=== PATIENT | male | born 1990 | race Caucasian/White ===

== ENCOUNTER 2018-04-16 18:44 | Inpatient (IN) ==
[2018-04-16 19:10] LABS: Bilirubin,Urine Negative (Negative); Blood,Urine Negative (Negative); Clarity,Urine Clear (Clear); Color,Urine Yellow (Yellow); Glucose,Urine (UA) Normal (Normal); Ketones,Urine Negative (Negative); Leukocyte Esterase,Urine Negative (Negative); Nitrite,Urine Negative (Negative); PH,Urine 6.5 pH Units (5.0-8.0); Protein,Urine Negative (Neg-Trace); Specific Gravity,Urine 1.008 (1.010-1.025); Urobilinogen,Urine Normal (Normal)
--- NOTE | 2018-04-16 19:11 | Emergency Department Note ---
Disposition Clinical Impression: Suicidal ideation Disposition: Still a Patient Condition: Good Referrals: April Aguilar [employer] [Advanced Practice Nurse] - Forms: ED Satisfaction Letter Time of Disposition: 23:15 Psych HPI - General Chief Complaint: ED Psychiatric Symptoms Stated Complaint: psych eval, SI/HI Source: patient Mode of arrival: ambulatory Limitations: no limitations Nursing Notes Reviewed: Yes Vital Signs Reviewed: Yes - History of Present Illness HPI Narrative: Patient presents to the emergency department today for evaluation of psychiatric disturbances. Patient states that he has a history of bipolar as well as anxiety and depression. He has gone through rehabilitation and required inpatient stay in the past. He states that he was started on Suboxone but this started to become more of a habit so he tried weaning himself off. While weaning himself off he did start to take other drugs which include crushed up Vicodin which she has injected. He does have sites of injection that do not appear to be infected at this time. He does have a previous history of hepatitis C. His depression has gotten to the point that he feels like he is going to . He feels that he would be better off sometimes. He has been experiencing visual as well as auditory hallucinations. Describes feeling as if he is somebody else. Describes people talking to him. Patient states he does have access to firearms. Patient is not currently having his many symptoms as he was yesterday. States that he wants to become an active member of society but does not feel he can do without significant help. - Related Data Previous Rx's Medication Instructions Recorded Sulfamethoxazole/Trimeth DS 1 each PO BID #14 tablet 01/30/18 [Bactrim DS] cephALEXin [Keflex] 500 mg PO QID #28 capsule 01/30/18 Allergies Allergy/AdvReac Type Severity Reaction Status Date / Time Sulfa (Sulfonamide Allergy Hives Verified 02/04/18 11:47 Antibiotics) Review of Systems: As Per HPI Constitutional: Denies: fever, chills Cardiovascular: Reports: chest pain (2 days ago described as sharp in not worse with exertion) Respiratory: Denies: cough, dyspnea Gastrointestinal: Denies: abdominal pain, nausea Musculoskeletal: Denies: back pain, neck pain Integumentary: Denies: rash, abrasion Neurological: Denies: headache Psychiatric: Reports: depression, suicidal thoughts, auditory hallucinations, visual hallucinations Endocrine: Denies: fatigue Past Medical History - Past Medical History Medical history: Reports: kidney stones, other Psychiatric history: Reports: anxiety, depression - Social History Smoking Status: Current every day smoker Smokeless Tobacco Status: No Alcohol use: Reports: occasionally Drug use: Reports: marijuana, methamphetamine, IV Drug Use, other Physical Exam General: Well appearing, nontoxic, mildly anxious Head: Normocephalic Atraumatic Eyes: PERRL, EOMI ENT: Airway patent, no stridor Neck: supple, full range of motion Chest: Lungs clear to auscultation bilateral Cardiac: Regular rate and rhythm, no murmurs, rubs or gallops Abdomen: soft, nontender, nondistended; no guarding, rebound, or tenderness to percussion Skin: Previous injection sites the right antecubital fossa without signs of infection and no decreased range of motion Neuro: Alert and Oriented to person, place, and time; No focal deficit, Psych: Mildly anxious without evidence of psychosis. - General Limitations: no limitations General appearance: alert Course Course Narrative: Patient medically cleared. Awaiting laboratory clearance. Patient will be discussed with the psychiatry team. Further disposition pending. - Reevaluation(s) Reevaluation #1: Patient awaiting further psychiatric disposition. Signed out to Dr. Lujan. Vital Signs Temperature 98.2 F 04/16/18 18:46 Pulse Rate 107 04/16/18 18:46 Respiratory Rate 14 04/16/18 18:46 Blood Pressure 112/77 04/16/18 18:46 O2 Sat by Pulse Oximetry 97 04/16/18 18:46 Temperature 98.2 F 04/16/18 18:46 Pulse Rate 107 04/16/18 18:46 Respiratory Rate 14 04/16/18 18:46 Blood Pressure 112/77 04/16/18 18:46 O2 Sat by Pulse Oximetry 97 04/16/18 18:46 Oxygen Delivery Oxygen Delivery Room Air Psych - Lab Data Result diagrams: 04/16/18 19:13 04/16/18 19:13 Lab Results 04/16/18 04/16/18 04/16/18 Range/Units 19:00 19:00 19:13 WBC 8.0 (4.3-11.1) K/mcL RBC 4.42 (4.19-5.50) M/mcL Hgb 13.7 (12.9-16.9) g/dL Hct 39.6 (37.5-50.1) % MCV 89.6 (83.0-100.0) fL MCH 31.0 (28.0-33.3) pg MCHC 34.6 (31.6-35.5) g/dL RDW 13.2 (11.5-14.5) % Plt Count 247 (140-400) K/mcL MPV 10.2 (9.4-12.4) fL Immature Gran % 0.5 (0-4) % Seg Neutrophils % 55.4 % Lymphocytes % 30.8 % Monocytes % 11.4 % Eosinophils % 1.4 % Basophils % 0.5 % Neutrophils # 4.4 (1.6-8.9) K/mcL Lymphocytes # 2.5 (0.6-4.6) K/mcL Monocytes # 0.9 (0.0-1.3) K/mcL Eosinophils # 0.1 (0.0-0.6) K/mcL Basophils # 0.0 (0.0-0.2) K/mcL Sodium (136-145) mEq/L Potassium (3.5-5.1) mEq/L Chloride (98-107) mEq/L Carbon Dioxide (23-29) mEq/L BUN (6-20) mg/dL Creatinine (0.70-1.30) mg/dL Est GFR ( Amer) (> 60) Est GFR (Non-Af Amer) (> 60) BUN/Creatinine Ratio (6-26) Glucose (70-105) mg/dL Calculated Osmolality (280-300) Calcium (8.6-10.3) mg/dL Total Bilirubin (0.3-1.0) mg/dL Direct Bilirubin (0.0-0.2) mg/dL Indirect Bilirubin (0.0-1.2) mg/dL AST (13-39) Units/L ALT (7-52) Units/L Alkaline Phosphatase (34-104) Units/L Serum Total Protein (6.4-8.9) g/dL Albumin (3.5-5.7) g/dL Globulin (2.4-3.5) g/dL Albumin/Globulin Ratio (1.1-2.2) Urine Color Yellow (Yellow) Urine Clarity Clear (Clear) Urine pH 6.5 (5.0-8.0) pH Units Ur Specific [place] 1.008 L (1.010-1.025) Urine Protein Negative (Neg-Trace) mg/dL Urine Glucose (UA) Normal (Normal) mg/dL Urine Ketones Negative (Negative) mg/dL Urine Blood Negative (Negative) Urine Nitrite Negative (Negative) Urine Bilirubin Negative (Negative) Urine Urobilinogen Normal (Normal) mg/dL Ur Leukocyte Esterase Negative (Negative) Salicylates (15.0-30.0) mg/dL Urine Opiates Screen Positive H (Fsaxli=184) ng/mL Acetaminophen (10-20) mcg/mL Ur Barbiturates Screen Negative (Jcditd=798) ng/mL Ur Phencyclidine Scrn Negative (Cutoff=25) ng/mL Ur Amphetamines Screen Negative (Aaqeiv=8571) ng/mL U Benzodiazepines Scrn Negative (Fufqbb=738) ng/mL Urine Cocaine Screen Negative (Cutoff= 300) ng/mL U Marijuana (THC) Screen Positive H (Cutoff = 50) ng/mL Ur Drug Screen Interp See Below Ethyl Alcohol (Less than 10) mg/dL 04/16/18 Range/Units 19:13 WBC (4.3-11.1) K/mcL RBC (4.19-5.50) M/mcL Hgb (12.9-16.9) g/dL Hct (37.5-50.1) % MCV (83.0-100.0) fL MCH (28.0-33.3) pg MCHC (31.6-35.5) g/dL RDW (11.5-14.5) % Plt Count (140-400) K/mcL MPV (9.4-12.4) fL Immature Gran % (0-4) % Seg Neutrophils % % Lymphocytes % % Monocytes % % Eosinophils % % Basophils % % Neutrophils # (1.6-8.9) K/mcL Lymphocytes # (0.6-4.6) K/mcL Monocytes # (0.0-1.3) K/mcL Eosinophils # (0.0-0.6) K/mcL Basophils # (0.0-0.2) K/mcL Sodium 137 (136-145) mEq/L Potassium 3.4 L (3.5-5.1) mEq/L Chloride 103 (98-107) mEq/L Carbon Dioxide 25 (23-29) mEq/L BUN 11 (6-20) mg/dL Creatinine 0.75 (0.70-1.30) mg/dL Est GFR ( Amer) > 60 (> 60) Est GFR (Non-Af Amer) > 60 (> 60) BUN/Creatinine Ratio 15 (6-26) Glucose 123 H (70-105) mg/dL Calculated Osmolality 285 (280-300) Calcium 9.2 (8.6-10.3) mg/dL Total Bilirubin 1.0 (0.3-1.0) mg/dL Direct Bilirubin 0.2 (0.0-0.2) mg/dL Indirect Bilirubin 0.8 (0.0-1.2) mg/dL AST 72 H (13-39) Units/L ALT 139 H (7-52) Units/L Alkaline Phosphatase 59 (34-104) Units/L Serum Total Protein 6.9 (6.4-8.9) g/dL Albumin 4.3 (3.5-5.7) g/dL Globulin 2.6 (2.4-3.5) g/dL Albumin/Globulin Ratio 1.7 (1.1-2.2) Urine Color (Yellow) Urine Clarity (Clear) Urine pH (5.0-8.0) pH Units Ur Specific [place] (1.010-1.025) Urine Protein (Neg-Trace) mg/dL Urine Glucose (UA) (Normal) mg/dL Urine Ketones (Negative) mg/dL Urine Blood (Negative) Urine Nitrite (Negative) Urine Bilirubin (Negative) Urine Urobilinogen (Normal) mg/dL Ur Leukocyte Esterase (Negative) Salicylates < 2.5 L (15.0-30.0) mg/dL Urine Opiates Screen (Vyvgwb=816) ng/mL Acetaminophen < 10 L (10-20) mcg/mL Ur Barbiturates Screen (Ukydpl=290) ng/mL Ur Phencyclidine Scrn (Cutoff=25) ng/mL Ur Amphetamines Screen (Vlyazy=8856) ng/mL U Benzodiazepines Scrn (Phxnyc=485) ng/mL Urine Cocaine Screen (Cutoff= 300) ng/mL U Marijuana (THC) Screen (Cutoff = 50) ng/mL Ur Drug Screen Interp Ethyl Alcohol < 10 (Less than 10) mg/dL - EKG Data EKG attestation: Yes I reviewed and interpreted this EKG. EKG results narrative: EKG shows sinus rhythm with ventricular rate of 91. WI interval 150. QRS 105. QTC 399. Patient has no significant ST elevations or depressions. No previous EKG for comparison. Psychiatric Medical Clearance - Medical Clearance Checklist Medical History: No Social History Section defined Current Vitals: Last Vital Signs Temp 98.2 F 04/16/18 18:46 Pulse 107 04/16/18 18:46 Resp 14 04/16/18 18:46 BP 112/77 04/16/18 18:46 Pulse Ox 97 04/16/18 18:46 Psychiatric Lab Panel: Drug Levels and Toxicity 04/16/18 04/16/18 19:00 19:13 Urine Opiates Screen Positive H Acetaminophen < 10 L Ur Barbiturates Screen Negative Ur Phencyclidine Scrn Negative Ur Amphetamines Screen Negative U Benzodiazepines Scrn Negative Urine Cocaine Screen Negative U Marijuana (THC) Screen Positive H Ethyl Alcohol < 10 Abnormal Labs: Abnormal lab results Potassium 3.4 mEq/L (3.5-5.1) L 04/16/18 19:13 Glucose 123 mg/dL (70-105) H 04/16/18 19:13 AST 72 Units/L (13-39) H 04/16/18 19:13 ALT 139 Units/L (7-52) H 04/16/18 19:13 Ur Specific [place] 1.008 (1.010-1.025) L 04/16/18 19:00 Salicylates < 2.5 mg/dL (15.0-30.0) L 04/16/18 19:13 Urine Opiates Screen Positive ng/mL (Imdvew=130) H 04/16/18 19:00 Acetaminophen < 10 mcg/mL (10-20) L 04/16/18 19:13 U Marijuana (THC) Screen Positive ng/mL (Cutoff = 50) H 04/16/18 19:00 Statement of Medical Clearance: I have evaluated the patient, reviewed diagnostic information, and certify that the patient's medical condition is sufficiently stable that transfer to the psychiatric unit does not pose a significant risk of deterioration.
[2018-04-16 19:29] LABS: Basophils % 0.5 %; Eosinophils # 0.1 K/mcL (0.0-0.6); Eosinophils % 1.4 %; Hematocrit 39.6 % (37.5-50.1); Hemoglobin 13.7 g/dL (12.9-16.9); Immature Granulocytes % 0.5 % (0-4); Lymphocytes # 2.5 K/mcL (0.6-4.6); Lymphocytes % 30.8 %; Mean Corpuscular HGB Conc 34.6 g/dL (31.6-35.5); Mean Corpuscular Volume 89.6 fL (83.0-100.0); Mean Platelet Volume 10.2 fL (9.4-12.4); Monocytes # 0.9 K/mcL (0.0-1.3); Monocytes % 11.4 %; Neutrophils # 4.4 K/mcL (1.6-8.9); Platelet Count 247 K/mcL (140-400); Red Blood Count 4.42 M/mcL (4.19-5.50); Red Cell Distribution Width 13.2 % (11.5-14.5); Segmented Neutrophils % 55.4 %
[2018-04-16 19:36] LABS: Amphetamine Screen,Urine Negative ng/mL (Cutoff=1000); Barbiturate Screen,Urine Negative ng/mL (Cutoff=200); Benzodiazepines Screen,Urine Negative ng/mL (Cutoff=200); Cannabinoid Screen,Urine Positive ng/mL (Cutoff = 50); Cocaine Screen,Urine Negative ng/mL (Cutoff= 300); Opiate Screen,Urine Positive ng/mL (Cutoff=300); Phencyclidine Screen,Urine Negative ng/mL (Cutoff=25)
[2018-04-16 19:47] LABS: Acetaminophen < 10 mcg/mL (10-20); Alanine Aminotransferase 139 Units/L (7-52); Albumin 4.3 g/dL (3.5-5.7); Albumin/Globulin Ratio 1.7 (1.1-2.2); Alkaline Phosphatase 59 Units/L (34-104); Aspartate Amino Transferase 72 Units/L (13-39); BUN/Creatinine Ratio 15 (6-26); Bilirubin,Direct 0.2 mg/dL (0.0-0.2); Bilirubin,Indirect 0.8 mg/dL (0.0-1.2); Blood Urea Nitrogen 11 mg/dL (6-20); Calcium 9.2 mg/dL (8.6-10.3); Carbon Dioxide 25 mEq/L (23-29); Chloride 103 mEq/L (98-107); Ethanol < 10 mg/dL (Less than 10); Globulin 2.6 g/dL (2.4-3.5); Glucose 123 mg/dL (70-105); Osmolality,Calculated 285 (280-300); Potassium 3.4 mEq/L (3.5-5.1); Salicylate < 2.5 mg/dL (15.0-30.0); Sodium 137 mEq/L (136-145); Total Protein 6.9 g/dL (6.4-8.9); eGFR For Non-African Americans > 60 (> 60)
--- NOTE | 2018-04-17 00:23 | Emergency Department Note ---
Disposition Clinical Impression: Suicidal ideation Disposition: Admitted As Inpatient Condition: Good Time of Disposition: 00:22 General Adult HPI - General Chief complaint: ED Psychiatric Symptoms Stated complaint: psych eval, SI/HI Source: patient Mode of arrival: ambulatory Limitations: no limitations - History of Present Illness Pain Scale: 0 - Related Data Previous Rx's Medication Instructions Recorded Sulfamethoxazole/Trimeth DS 1 each PO BID #14 tablet 01/30/18 [Bactrim DS] cephALEXin [Keflex] 500 mg PO QID #28 capsule 01/30/18 Allergies Allergy/AdvReac Type Severity Reaction Status Date / Time Sulfa (Sulfonamide Allergy Hives Verified 02/04/18 11:47 Antibiotics) Constitutional: Denies: fever, chills Cardiovascular: Reports: chest pain (2 days ago described as sharp in not worse with exertion) Respiratory: Denies: cough, dyspnea Gastrointestinal: Denies: abdominal pain, nausea Musculoskeletal: Denies: back pain, neck pain Integumentary: Denies: rash, abrasion Neurological: Denies: headache Psychiatric: Reports: depression, suicidal thoughts, auditory hallucinations, visual hallucinations Endocrine: Denies: fatigue Past Medical History - Past Medical History Medical history: Reports: kidney stones, other Psychiatric history: Reports: anxiety, depression - Social History Smoking Status: Current every day smoker Smokeless Tobacco Status: No Alcohol use: Reports: occasionally Drug use: Reports: marijuana, methamphetamine, IV Drug Use, other Physical Exam - General Limitations: no limitations General appearance: alert Course Course Narrative: This patient was signed out to me at shift change from Dr. Bishop. Please refer to his note for complete details of the history and physical examination. Patient is a 28-year-old male who presented with suicidal ideation and has been evaluated and cleared for psychiatric consultation. Age patient is awaiting final disposition pending psychiatric consultation. Patient was seen and evaluated in the emergency department by the [address] psychiatry service and is being admitted to the [address] psychiatric unit. Vital Signs Temperature 98.2 F 04/16/18 18:46 Pulse Rate 107 04/16/18 18:46 Respiratory Rate 14 04/16/18 18:46 Blood Pressure 112/77 04/16/18 18:46 O2 Sat by Pulse Oximetry 97 04/16/18 18:46 Temperature 98.2 F 04/16/18 18:46 Pulse Rate 90 04/16/18 23:25 Respiratory Rate 16 04/16/18 23:25 Blood Pressure 118/78 04/16/18 23:25 O2 Sat by Pulse Oximetry 98 04/16/18 23:25 Oxygen Delivery Oxygen Delivery Room Air Medical Decision Making - Lab Data Result diagrams: 04/16/18 19:13 04/16/18 19:13 Lab Results 04/16/18 04/16/18 04/16/18 Range/Units 19:00 19:00 19:13 WBC 8.0 (4.3-11.1) K/mcL RBC 4.42 (4.19-5.50) M/mcL Hgb 13.7 (12.9-16.9) g/dL Hct 39.6 (37.5-50.1) % MCV 89.6 (83.0-100.0) fL MCH 31.0 (28.0-33.3) pg MCHC 34.6 (31.6-35.5) g/dL RDW 13.2 (11.5-14.5) % Plt Count 247 (140-400) K/mcL MPV 10.2 (9.4-12.4) fL Immature Gran % 0.5 (0-4) % Seg Neutrophils % 55.4 % Lymphocytes % 30.8 % Monocytes % 11.4 % Eosinophils % 1.4 % Basophils % 0.5 % Neutrophils # 4.4 (1.6-8.9) K/mcL Lymphocytes # 2.5 (0.6-4.6) K/mcL Monocytes # 0.9 (0.0-1.3) K/mcL Eosinophils # 0.1 (0.0-0.6) K/mcL Basophils # 0.0 (0.0-0.2) K/mcL Sodium (136-145) mEq/L Potassium (3.5-5.1) mEq/L Chloride (98-107) mEq/L Carbon Dioxide (23-29) mEq/L BUN (6-20) mg/dL Creatinine (0.70-1.30) mg/dL Est GFR ( Amer) (> 60) Est GFR (Non-Af Amer) (> 60) BUN/Creatinine Ratio (6-26) Glucose (70-105) mg/dL Calculated Osmolality (280-300) Calcium (8.6-10.3) mg/dL Total Bilirubin (0.3-1.0) mg/dL Direct Bilirubin (0.0-0.2) mg/dL Indirect Bilirubin (0.0-1.2) mg/dL AST (13-39) Units/L ALT (7-52) Units/L Alkaline Phosphatase (34-104) Units/L Serum Total Protein (6.4-8.9) g/dL Albumin (3.5-5.7) g/dL Globulin (2.4-3.5) g/dL Albumin/Globulin Ratio (1.1-2.2) Urine Color Yellow (Yellow) Urine Clarity Clear (Clear) Urine pH 6.5 (5.0-8.0) pH Units Ur Specific [place] 1.008 L (1.010-1.025) Urine Protein Negative (Neg-Trace) mg/dL Urine Glucose (UA) Normal (Normal) mg/dL Urine Ketones Negative (Negative) mg/dL Urine Blood Negative (Negative) Urine Nitrite Negative (Negative) Urine Bilirubin Negative (Negative) Urine Urobilinogen Normal (Normal) mg/dL Ur Leukocyte Esterase Negative (Negative) Salicylates (15.0-30.0) mg/dL Urine Opiates Screen Positive H (Cxievl=757) ng/mL Acetaminophen (10-20) mcg/mL Ur Barbiturates Screen Negative (Inbnph=821) ng/mL Ur Phencyclidine Scrn Negative (Cutoff=25) ng/mL Ur Amphetamines Screen Negative (Avgcss=1612) ng/mL U Benzodiazepines Scrn Negative (Olthth=478) ng/mL Urine Cocaine Screen Negative (Cutoff= 300) ng/mL U Marijuana (THC) Screen Positive H (Cutoff = 50) ng/mL Ur Drug Screen Interp See Below Ethyl Alcohol (Less than 10) mg/dL 04/16/18 Range/Units 19:13 WBC (4.3-11.1) K/mcL RBC (4.19-5.50) M/mcL Hgb (12.9-16.9) g/dL Hct (37.5-50.1) % MCV (83.0-100.0) fL MCH (28.0-33.3) pg MCHC (31.6-35.5) g/dL RDW (11.5-14.5) % Plt Count (140-400) K/mcL MPV (9.4-12.4) fL Immature Gran % (0-4) % Seg Neutrophils % % Lymphocytes % % Monocytes % % Eosinophils % % Basophils % % Neutrophils # (1.6-8.9) K/mcL Lymphocytes # (0.6-4.6) K/mcL Monocytes # (0.0-1.3) K/mcL Eosinophils # (0.0-0.6) K/mcL Basophils # (0.0-0.2) K/mcL Sodium 137 (136-145) mEq/L Potassium 3.4 L (3.5-5.1) mEq/L Chloride 103 (98-107) mEq/L Carbon Dioxide 25 (23-29) mEq/L BUN 11 (6-20) mg/dL Creatinine 0.75 (0.70-1.30) mg/dL Est GFR ( Amer) > 60 (> 60) Est GFR (Non-Af Amer) > 60 (> 60) BUN/Creatinine Ratio 15 (6-26) Glucose 123 H (70-105) mg/dL Calculated Osmolality 285 (280-300) Calcium 9.2 (8.6-10.3) mg/dL Total Bilirubin 1.0 (0.3-1.0) mg/dL Direct Bilirubin 0.2 (0.0-0.2) mg/dL Indirect Bilirubin 0.8 (0.0-1.2) mg/dL AST 72 H (13-39) Units/L ALT 139 H (7-52) Units/L Alkaline Phosphatase 59 (34-104) Units/L Serum Total Protein 6.9 (6.4-8.9) g/dL Albumin 4.3 (3.5-5.7) g/dL Globulin 2.6 (2.4-3.5) g/dL Albumin/Globulin Ratio 1.7 (1.1-2.2) Urine Color (Yellow) Urine Clarity (Clear) Urine pH (5.0-8.0) pH Units Ur Specific [place] (1.010-1.025) Urine Protein (Neg-Trace) mg/dL Urine Glucose (UA) (Normal) mg/dL Urine Ketones (Negative) mg/dL Urine Blood (Negative) Urine Nitrite (Negative) Urine Bilirubin (Negative) Urine Urobilinogen (Normal) mg/dL Ur Leukocyte Esterase (Negative) Salicylates < 2.5 L (15.0-30.0) mg/dL Urine Opiates Screen (Djxayb=717) ng/mL Acetaminophen < 10 L (10-20) mcg/mL Ur Barbiturates Screen (Iumtsw=356) ng/mL Ur Phencyclidine Scrn (Cutoff=25) ng/mL Ur Amphetamines Screen (Uunjxe=2910) ng/mL U Benzodiazepines Scrn (Odukrg=981) ng/mL Urine Cocaine Screen (Cutoff= 300) ng/mL U Marijuana (THC) Screen (Cutoff = 50) ng/mL Ur Drug Screen Interp Ethyl Alcohol < 10 (Less than 10) mg/dL
[2018-04-17] MEDS ORDERED: MOM Conc 10 ML UD.LIQ PO PRN (00:25)
[2018-04-17] MEDS ORDERED: *HR* LORazepam 2 MG/ML VIAL IM PRN (00:25)
[2018-04-17] MEDS ORDERED: Ibuprofen 400 MG TABLET PO PRN (00:25)
[2018-04-17] MEDS ORDERED: Acetaminophen 325 MG TABLET PO PRN (00:25)
[2018-04-17] MEDS ORDERED: *HR* LORazepam 1 MG TABLET PO PRN (00:25)
[2018-04-17] MEDS ORDERED: Haloperidol Lactate 5 MG/ML VIAL IM PRN (00:25)
[2018-04-17] MEDS ORDERED: Ondansetron ODT 4 MG TAB.RAPDIS SL PRN (00:32)
[2018-04-17] MEDS: hydrOXYzine pamoate 25 MG CAPSULE PO PRN (01:43)
[2018-04-17] MEDS: traZODone 50 MG TABLET PO PRN (01:43)
[2018-04-17] MEDS: cloNIDine HCl 0.1 MG TABLET PO SCH ×4 (02:19→20:54)
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
[2018-04-17] MEDS ORDERED: Nicotine 21 MG PATCH.TD24 TD ONE (14:14)
[2018-04-17] MEDS: Baclofen 10 MG TABLET PO SCH ×2 (14:51→20:54)
--- NOTE | 2018-04-17 20:25 | Electrocardiograph Report ---
[address] [address] Test Date: 2018-04-16 Pat Name: Fransico Koenig Department: 103 Room: 1A45 Gender: M Social Insurance Adviser: MATTHEW : 1990 Requested By: [id number] Order Number: [id number] Reading MD: Giovana Bailon Measurements Intervals [place] Rate: 91 P: 60 TN: 150 QRS: 97 QRSD: 105 T: 44 QT: 350 QTc: 399 Interpretive Statements SINUS RHYTHM BORDERLINE RIGHT AXIS DEVIATION [QRS AXIS > 90] INCOMPLETE RIGHT BUNDLE BRANCH BLOCK [90+ ms QRS DURATION, TERMINAL R IN V1/V2, 40+ ms S IN I/aVL/V4/V5/V6] Electronically Signed On 04-17-2018 17:06:15 EDT by Giovana Bailon
[2018-04-18] MEDS: Baclofen 10 MG TABLET PO SCH ×3 (08:59→21:11)
[2018-04-18] MEDS: cloNIDine HCl 0.1 MG TABLET PO SCH ×3 (08:59→21:11)
[2018-04-18] MEDS: Nicotine 21 MG PATCH.TD24 TD SCH (09:00)
[2018-04-18] MEDS: Mag Hydrox/Al Hydrox/Simeth 30 ML UDC PO PRN (10:54)
--- NOTE | 2018-04-18 15:11 | Psychiatry Progress Note ---
Date of Encounter: 04/18/18 Time of Encounter: 15:00 Subjective Interval history: 28 yo white male CC: It as if I cannot tell. HPI: Patient has been able to sleep. he has heard some voices. he has some isolatin last night but today is more social and out of his room. he attended groups yesterday. he is insterested in doing this. he has ome withdrawal symptoms but these are improved. he has some GI discomfor.t He has said that absitence is problem He says His body does not want marijuana, but his body is craving it. he is willing to consider some respite or other treatment. 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 Current visit: Yes Status: Acute Plan: Close observation, Secure weapons, Family/Supportive other meeting Risks , benefits, side effects, alternatives discussed w/pt: Yes Patient agreeable to treatment: Yes (3) Opioid dependence with withdrawal Current visit: Yes Status: Acute Plan: Monitor appetite, Family/Supportive other meeting Risks, benefits, side effects, alternatives discussed w/pt: No Patient agreeable to treatment: No (4) Recurrent brief depressive episodes Current visit: Yes Status: Acute Plan: Group Therapy, Monitor sleep, Monitor appetite, Secure weapons, Family/ Supportive other meeting Risks, benefits, side effects, alternatives discussed w/pt: Yes Patient agreeable to treatment: Yes Consult Discharge Plan - Plan Referrals: NONE,PCP [Primary Care Provider] - Psychiatry Exam - Constitutional Vitals: Temp Pulse Resp BP Pulse Ox 97.4 F L 59 16 107/69 98 04/18/18 09:00 04/18/18 09:00 04/18/18 09:00 04/18/18 09:00 04/16/18 23:25 General appearance: age & developmentally appropriate, well-groomed, well- nourished - Musculoskeletal Gait: normal Station: relaxed Strength & Tone: normal for patient - Psychiatric Patient Orientation: Yes Person, Yes Time, Yes Place Level of alertness: Alert Behavior: calm, withdrawn Psychomotor activity: Slowed Eye Contact: Minimal Contact Mood Description: Euthymic/stable Affect description: congruent with mood, constricted Speech Volume: Normal Speech pattern: normal rate, normal rhythm, normal tone, fluent, spontaneous Language & Vocabulary: consistent with education Thought Process: Linear, Goal Oriented Thought Content: Yes Suicidal ideation, No Homicidal ideation, No Overt delusions, Yes Ideas of reference, Yes Thought broadcasting, Yes Thought insertion Perceptual Disturbances: Yes Auditory hallucinations, No Visual hallucinations Attention Span Ability: Capable of Focused Attention Memory Description: Grossly Intact Patient Reliability: Questionable Historian Fund of knowledge: Yes abstraction ability, Yes aware of current events Intelligence Estimate: Average Judgment: Limited Insight: Minimal
[2018-04-19] MEDS: hydrOXYzine pamoate 25 MG CAPSULE PO PRN (00:21)
[2018-04-19] MEDS: Nicotine 21 MG PATCH.TD24 TD SCH (08:43)
[2018-04-19] MEDS: Baclofen 10 MG TABLET PO SCH ×3 (08:43→21:17)
[2018-04-19] MEDS: cloNIDine HCl 0.1 MG TABLET PO SCH ×2 (08:43→21:17)
--- NOTE | 2018-04-19 14:56 | Psychiatry Progress Note ---
Date of Encounter: 04/19/18 Time of Encounter: 15:00 Subjective Interval history: Patient is a 28-year-old white male. He is here as a voluntary patient. The patient was advised to search for treatment programs. However he was overheard on the phone talking to someone about his symptoms. The patient has some GI complaints. He is tolerating the medications for withdrawal. The patient is not a good candidate for naltrexone until 04/24/2018. I will increase Seroquel to 300 mg daily at bedtime I will reduce clonidine to 0.1 twice a day. 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 Current visit: Yes Status: Acute Plan: Continue hospitalization, Close observation, Monitor sleep, Monitor appetite Risks, benefits, side effects, alternatives discussed w/pt: Yes Patient agreeable to treatment: Yes (3) Opioid dependence with withdrawal Current visit: Yes Status: Acute Plan: Group Therapy, Monitor sleep, Family/Supportive other meeting Risks, benefits, side effects, alternatives discussed w/pt: No Patient agreeable to treatment: No (4) Recurrent brief depressive episodes Current visit: Yes Status: Acute Plan: Continue hospitalization, Secure weapons Risks, benefits, side effects, alternatives discussed w/pt: Yes Patient agreeable to treatment: Yes Consult Discharge Plan - Plan Referrals: NONE,PCP [Primary Care Provider] - Psychiatry Exam - Constitutional Vitals: Temp Pulse Resp BP Pulse Ox 97.9 F 69 16 106/70 98 04/19/18 09:00 04/19/18 09:00 04/19/18 09:00 04/19/18 09:00 04/16/18 23:25 General appearance: age & developmentally appropriate, well-groomed, well- nourished - Musculoskeletal Gait: normal Station: relaxed Strength & Tone: normal for patient - Psychiatric Patient Orientation: Yes Person, Yes Time, Yes Place Level of alertness: Alert Behavior: calm, cooperative Psychomotor activity: Normal Eye Contact: Maintains Eye Contact Mood Description: Euthymic/stable Affect description: congruent with mood, full range Speech Volume: Normal Speech pattern: normal rate, normal rhythm, normal tone, fluent, spontaneous Language & Vocabulary: consistent with education Thought Process: Linear, Goal Oriented Thought Content: Yes Suicidal ideation, No Homicidal ideation, No Overt delusions, Yes Ideas of reference, Yes Thought broadcasting, Yes Thought insertion Perceptual Disturbances: Yes Auditory hallucinations, No Visual hallucinations Attention Span Ability: Capable of Focused Attention Memory Description: Grossly Intact Patient Reliability: Reliable Historian Fund of knowledge: Yes abstraction ability, Yes aware of current events Intelligence Estimate: Average Judgment: Fair Insight: Partial
[2018-04-20] MEDS: Nicotine 21 MG PATCH.TD24 TD SCH (09:40)
[2018-04-20] MEDS: Baclofen 10 MG TABLET PO SCH ×3 (09:40→20:31)
[2018-04-20] MEDS: cloNIDine HCl 0.1 MG TABLET PO SCH ×2 (10:11→20:32)
--- NOTE | 2018-04-20 10:45 | Psychiatry Progress Note ---
Date of Encounter: 04/20/18 Time of Encounter: 10:36 Subjective Interval history: Client states he does not like the Seroquel. Blames medication for pain he is feeling around his shoulder blade. Although this is unlikely to be due to Seroquel there is no reason to continue medication if he is not willing to be compliant with it. No longer having any symptoms of psychosis. Client reports he has been diagnosed with Schizophrenia in the past but he does not look like someone with Schizophrenia to this teletypewriter installer and his history is more consistent with substance induced psychosis than it is a primary thought disorder. Client is asking for Depakote. Reports this medication is what helped him the most in the past. States no one is willing to prescribe it for him. After reviewing his history this teletypewriter installer suspects the main reason no one wants to use it is that client is Hep C positive. Liver enzymes mildly elevated this admission. Discussed this with client. He is aware of the risks of taking Depakote with an unhealthy liver. Aware he needs a liver to live. Willing to take Depakote despite the risks. Also aware future prescribers may not feel comfortable continuing medication if his liver enzymes start to worsen. This teletypewriter installer is willing to start Depakote at a low dose while titrating down on Seroquel provided client is agreeable to risks. He is trying to get into rehab and many places will not allow him to continue on Seroquel and participate in their residential treatment programs anyway. Discontinuing Seroquel will give him more treatment center options. Client states he is calling places but many of them will not return calls until Sunday or are requesting he call back on Sunday. Denies SI/HI today. Seems to be engaging well with others. Review of Systems Constitutional: Denies: fever, chills, weakness, weight change Eyes: Denies: eye pain, vision change Ears, Nose, Throat: Denies: ear pain, throat pain, dental pain, hearing loss, congestion Cardiovascular: Denies: chest pain, palpitations, dyspnea on exertion Respiratory: Denies: cough, dyspnea, wheezes Gastrointestinal: Denies: abdominal pain, nausea, vomiting, diarrhea, constipation Musculoskeletal: Denies: joint swelling, joint pain Neurological: Denies: headache, weakness, numbness, memory loss Psychiatric: Reports: depression, auditory hallucinations Results - Vital Signs Vital Signs: Temp Pulse Resp BP Pulse Ox 97.6 F 73 14 116/70 98 04/20/18 09:00 04/20/18 09:00 04/20/18 09:00 04/20/18 10:22 04/16/18 23:25 Assessment and Plan (1) 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 Current visit: Yes Status: Acute Plan: Continue hospitalization, Close observation, Suicide Precautions per unit protocol, Encourage participation in unit milieu, Group Therapy, Monitor sleep, Monitor appetite Risks, benefits, side effects, alternatives discussed w/pt: Yes Patient agreeable to treatment: Yes (2) Opioid dependence with withdrawal Current visit: Yes Status: Acute Plan: Continue hospitalization, Close observation, Suicide Precautions per unit protocol, Encourage participation in unit milieu, Group Therapy, Monitor sleep, Monitor appetite Risks, benefits, side effects, alternatives discussed w/pt: No Patient agreeable to treatment: No (3) Major depression Current visit: Yes Status: Acute Plan: Continue hospitalization, Close observation, Suicide Precautions per unit protocol, Encourage participation in unit milieu, Group Therapy, Monitor sleep, Monitor appetite Risks, benefits, side effects, alternatives discussed w/pt: Yes Patient agreeable to treatment: Yes Qualifiers: Major depression recurrence: recurrent Active/Remission status: currently active Major depression episode severity: moderate Qualified Code(s): F33.1 - Major depressive disorder, recurrent, moderate Consult Discharge Plan - Plan Referrals: NONE,PCP [Primary Care Provider] - Psychiatry Exam - Constitutional Vitals: Temp Pulse Resp BP Pulse Ox 97.6 F 73 14 116/70 98 04/20/18 09:00 04/20/18 09:00 04/20/18 09:00 04/20/18 10:22 04/16/18 23:25 General appearance: age & developmentally appropriate, well-groomed, well- nourished - Musculoskeletal Gait: normal Station: relaxed Strength & Tone: normal for patient - Psychiatric Patient Orientation: Yes Person, Yes Time, Yes Place Level of alertness: Alert Behavior: calm, cooperative Psychomotor activity: Normal Eye Contact: Minimal Contact Mood Description: Anxious Affect description: congruent with mood Speech Volume: Normal Speech pattern: normal rate, normal rhythm, normal tone, fluent, spontaneous Language & Vocabulary: consistent with education Thought Process: Linear, Goal Oriented Thought Content: No Suicidal ideation, No Homicidal ideation, No Overt delusions Perceptual Disturbances: No Auditory hallucinations, No Visual hallucinations Attention Span Ability: Capable of Focused Attention Memory Description: Grossly Intact Patient Reliability: Reliable Historian Fund of knowledge: Yes abstraction ability, Yes aware of current events Intelligence Estimate: Average Judgment: Limited Insight: Partial
[2018-04-20] MEDS: Valproic Acid Oral Soln 250 MG/5 ML UDC PO SCH (20:31)
[2018-04-21] MEDS: cloNIDine HCl 0.1 MG TABLET PO SCH ×2 (08:32→20:17)
[2018-04-21] MEDS: Baclofen 10 MG TABLET PO SCH ×3 (08:32→20:17)
[2018-04-21] MEDS: Valproic Acid Oral Soln 250 MG/5 ML UDC PO SCH ×2 (08:32→20:16)
[2018-04-21] MEDS: Nicotine 21 MG PATCH.TD24 TD SCH (08:32)
--- NOTE | 2018-04-21 10:17 | Psychiatry Progress Note ---
Date of Encounter: 04/21/18 Time of Encounter: 10:14 Subjective Interval history: Client states he is feeling better on the Depakote. Wants to continue to wean off of Seroquel. Worried his sleep might be effected but otherwise feels the med changes are only positive. He is worried about not finding a provider to prescribe Depakote once discharged. Discussed how this is a possibility given his liver issues and that at a minimum his LFTs will need followed over time. Continues to complain of AH but states they are much less and he can no longer make out what the voices are saying. Mood has improved. Denies SI/HI. Still interested in rehab but not doing much to secure a spot somewhere. Has called a couple of places and been told no one would be in until Sunday. Using this as an excuse not to call anywhere else. Review of Systems Constitutional: Denies: fever, chills, weakness, weight change Eyes: Denies: eye pain, vision change Ears, Nose, Throat: Denies: ear pain, throat pain, dental pain, hearing loss, congestion Cardiovascular: Denies: chest pain, palpitations, dyspnea on exertion Respiratory: Denies: cough, dyspnea, wheezes Gastrointestinal: Denies: abdominal pain, nausea, vomiting, diarrhea, constipation Musculoskeletal: Denies: joint swelling, joint pain Neurological: Denies: headache, weakness, numbness, memory loss Psychiatric: Reports: depression, auditory hallucinations Results - Vital Signs Vital Signs: Temp Pulse Resp BP Pulse Ox 97.9 F 77 16 113/91 98 04/20/18 20:46 04/20/18 20:46 04/20/18 20:46 04/20/18 20:46 04/16/18 23:25 Assessment and Plan (1) 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 Current visit: Yes Status: Acute Plan: Continue hospitalization, Close observation, Suicide Precautions per unit protocol, Encourage participation in unit milieu, Group Therapy, Monitor sleep Risks, benefits, side effects, alternatives discussed w/pt: Yes Patient agreeable to treatment: Yes (2) Opioid dependence with withdrawal Current visit: Yes Status: Acute Plan: Continue hospitalization, Close observation, Suicide Precautions per unit protocol, Encourage participation in unit milieu, Group Therapy, Monitor sleep Risks, benefits, side effects, alternatives discussed w/pt: No Patient agreeable to treatment: No (3) Major depression Current visit: Yes Status: Acute Plan: Continue hospitalization, Close observation, Suicide Precautions per unit protocol, Encourage participation in unit milieu, Group Therapy, Monitor sleep, Monitor appetite Risks, benefits, side effects, alternatives discussed w/pt: Yes Patient agreeable to treatment: Yes Qualifiers: Major depression recurrence: recurrent Active/Remission status: currently active Major depression episode severity: moderate Qualified Code(s): F33.1 - Major depressive disorder, recurrent, moderate Consult Discharge Plan - Plan Referrals: NONE,PCP [Primary Care Provider] - Psychiatry Exam - Constitutional Vitals: Temp Pulse Resp BP Pulse Ox 97.9 F 77 16 113/91 98 04/20/18 20:46 04/20/18 20:46 04/20/18 20:46 04/20/18 20:46 04/16/18 23:25 General appearance: age & developmentally appropriate, well-groomed, well- nourished - Musculoskeletal Gait: normal Station: relaxed Strength & Tone: normal for patient - Psychiatric Patient Orientation: Yes Person Level of alertness: Alert Behavior: calm, cooperative Psychomotor activity: Normal Eye Contact: Minimal Contact Mood Description: Euthymic/stable Affect description: blunted Speech Volume: Normal Speech pattern: normal rate, normal rhythm, normal tone, fluent, spontaneous Language & Vocabulary: consistent with education Thought Process: Linear, Goal Oriented Thought Content: No Suicidal ideation, No Homicidal ideation, No Overt delusions Perceptual Disturbances: Yes Auditory hallucinations Attention Span Ability: Capable of Focused Attention Memory Description: Grossly Intact Patient Reliability: Reliable Historian Fund of knowledge: Yes abstraction ability, Yes aware of current events Intelligence Estimate: Average Judgment: Limited Insight: Partial
[2018-04-22] MEDS: Nicotine 21 MG PATCH.TD24 TD SCH (08:56)
[2018-04-22] MEDS: Valproic Acid Oral Soln 250 MG/5 ML UDC PO SCH ×2 (08:56→20:12)
[2018-04-22] MEDS: Baclofen 10 MG TABLET PO SCH ×3 (08:56→20:13)
[2018-04-22] MEDS: cloNIDine HCl 0.1 MG TABLET PO SCH ×2 (08:56→20:13)
--- NOTE | 2018-04-22 13:20 | Psychiatry Progress Note ---
Date of Encounter: 04/22/18 Time of Encounter: 12:45 Subjective Interval history: Patient seen today , case d/w treatment plan and as per team patient still is having some psychosis. At [facility] states the best medication for him his depakote liquid form as it is not hard on his stomache. he refused to take seroquel last night as he remembered that it agitates the feeling of anxiety and pain in back so it was taperd from 300 mg to 100 mg and he refused last night states i feel better with out it and has been doing good. I d/w patient about his LFT and h/o hepatitis C , he is aware of risk of depakote on liver and he understands it and states has appointment with GI and as it is the only one helps so he will continue it. he is on 250 mg bid. he has significant drug use history and psychosis related to them , he is showing improvement with psychosis , he states he also talked to his pcp ABOUT WHAT MEDICATION HE IS ON AND SHE SAID SHE WILL PRESCRIBE HIM. HE IS STILL not calling inpatient rehab as now feels that AA meetings and out patient will be helpful as his s/s are better and he will continue his medication. will dc seroquel as patient c/o side effects and will continue all other medications. he is doing better and will start dc planning, and as per him my insurance does not cover some , others do not have bed and i know i can do this and this time i bought my self first time , i want to get better. 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 Current visit: Yes Status: Acute Plan: Continue hospitalization, Suicide Precautions per unit protocol, Encourage participation in unit milieu, Group Therapy, Monitor sleep, Family/ Supportive other meeting Risks, benefits, side effects, alternatives discussed w/pt: Yes Patient agreeable to treatment: Yes (2) Opioid dependence with withdrawal Current visit: Yes Status: Acute Plan: Continue hospitalization, Close observation, Suicide Precautions per unit protocol, Encourage participation in unit milieu, Group Therapy, Monitor sleep, Monitor appetite, Family/Supportive other meeting Risks, benefits, side effects, alternatives discussed w/pt: Yes Patient agreeable to treatment: Yes (3) Major depression Current visit: Yes Status: Acute Plan: Continue hospitalization, Suicide Precautions per unit protocol, Group Therapy, Family/Supportive other meeting Risks, benefits, side effects, alternatives discussed w/pt: Yes Patient agreeable to treatment: Yes Qualifiers: Major depression recurrence: recurrent Active/Remission status: currently active Major depression episode severity: moderate Qualified Code(s): F33.1 - Major depressive disorder, recurrent, moderate Consult Discharge Plan - Plan Referrals: NONE,PCP [Primary Care Provider] - Psychiatry Exam - Constitutional Vitals: Temp Pulse Resp BP Pulse Ox 97.2 F L 70 16 116/77 98 04/22/18 09:00 04/22/18 09:00 04/22/18 09:00 04/22/18 09:00 04/16/18 23:25 General appearance: age & developmentally appropriate - Musculoskeletal Gait: normal Station: other Strength & Tone: normal for patient - Psychiatric Patient Orientation: Yes Person, Yes Time, Yes Place Level of alertness: Alert Behavior: cooperative, anxious Psychomotor activity: Normal Eye Contact: Maintains Eye Contact Mood Description: Anxious Affect description: congruent with mood Speech Volume: Normal Speech pattern: clear, coherent Language & Vocabulary: consistent with education Thought Process: Logical Thought Content: Yes Intact Perceptual Disturbances: No Auditory hallucinations, No Visual hallucinations Attention Span Ability: Capable of Focused Attention Memory Description: Grossly Intact Patient Reliability: Reliable Historian Fund of knowledge: Yes average Intelligence Estimate: Average Judgment: Fair Insight: Partial
[2018-04-22] MEDS: Mag Hydrox/Al Hydrox/Simeth 30 ML UDC PO PRN (15:27)
[2018-04-22] MEDS: hydrOXYzine pamoate 25 MG CAPSULE PO PRN ×2 (15:27→20:13)
--- NOTE | 2018-04-22 19:59 | Internal Medicine Consult Note ---
Date of Encounter: 04/22/18 Time of Encounter: 18:00 - Assessment and plan (1) Chest pain, atypical Current Visit: Yes Status: Acute Assessment and plan: Patient reports of substernal chest pain but EKG shows no ST/T-wave changes and troponin negative No further intervention at this time; spec secondary to anxiety/stress Continue to monitor Hospitalist service will follow along with you (2) Mood disorder Current Visit: Yes Status: Acute Assessment and plan: Psychiatry following - Time Spent With Patient Total time spent is greater than 50% in coordination of care (as documented) at patient's floor/unit and/or counseling patient: Internal Medicine - CN: HPI - Data of Consult Requesting Physician: Dyana Hickman MD - Consult Narrative History of present illness: Patient is a 28-year-old male with past medical history significant for substance abuse and mood disorder who presents to the hospital who is currently inpatient psychiatric due to suicidal ideation. Hospitalist services called due to patient reporting of chest pain. Patient reports of substernal chest pain which he describes as squeezing with no provoking or relieving factors and denies any radiation of pain. Also patient also denies any associated symptoms. Stat troponin was ordered which was negative and EKG showed no evidence of T- wave or ST changes. Past Med Surg Social Fam HX - Past Medical History Medical history: kidney stones, other Additional medical history: mrsa, chlamydia Psychiatric history: other - Past Surgical History Surgical History: other - Social History Smoking Status: Current every day smoker Smokeless Tobacco Status: No Alcohol use: occasionally Drug use: marijuana, methamphetamine, IV Drug Use, other - Additional Family History Additional family history: Noncontributory Internal Medicine - CN: Meds No Known Home Drugs 04/17/18 [History] 3 Allergy/AdvReac Type Severity Reaction Status Date / Time Sulfa (Sulfonamide Allergy Hives Verified 02/04/18 11:47 Antibiotics) Internal Medicine - CN: Exam - Constitutional Vitals: Temp Pulse Resp BP Pulse Ox 97.2 F L 70 16 116/77 98 04/22/18 09:00 04/22/18 09:00 04/22/18 09:00 04/22/18 09:00 04/16/18 23:25 General appearance IM: Present: A&O X 3, no acute distress - Head Head exam: Present: atraumatic - Eye Eye exam: Present: normal appearance - ENT ENT exam: Present: mucous membranes moist - Respiratory Respiratory exam: Absent: accessory muscle use, respiratory distress - Cardiovascular Cardiovascular exam IM: Present: RRR - GI/Abdominal GI/Abdominal exam IM: Present: soft. Absent: distended - Neurological Exam Neurological exam: Present: alert, oriented X3 - Psychiatric Psychiatric exam: Present: anxious - Skin Skin exam IM: Present: normal color Internal Medicine - CN: Reslt - Labs CBC & Chem 7: 04/16/18 19:13 04/16/18 19:13 Labs: Cardiac Enzymes 04/22/18 Range/Units 16:14 Troponin I < 0.03 (< 0.04) ng/mL Consult Discharge Plan - Plan Referrals: [facility] [Outside] - 05/14/18 11:00 am (The above appointment is with Jelly Hui for psychiatric assessment and medication management. Please arrive 30 minutes early for paperwork. Bring your photo ID and insurance card to your appointment.) [facility] [Outside] - 04/24/18 9:30 am (The above appointment is with Angie for substance abuse and mental health counseling. Please bring photo ID and insurance card.) Clarence Dick, LOCK PLATER [Advanced Practice Nurse] - 05/16/18 3:00 pm (The above appointment is with Clarence Dick for gastroenterology issues. Please bring your photo ID and insurance card.)
[2018-04-22] MEDS: traZODone 50 MG TABLET PO PRN (20:13)
[2018-04-23] MEDS: Valproic Acid Oral Soln 250 MG/5 ML UDC PO SCH (09:04)
[2018-04-23] MEDS: cloNIDine HCl 0.1 MG TABLET PO SCH (09:05)
[2018-04-23] MEDS: Nicotine 21 MG PATCH.TD24 TD SCH (09:05)
[2018-04-23] MEDS: Baclofen 10 MG TABLET PO SCH ×2 (09:05→14:28)
[2018-04-23 09:32] VITALS: BP 110/73
--- NOTE | 2018-04-23 11:41 | Discharge Summary ---
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 (2) Opioid dependence with withdrawal Status: Resolved Comments: patient stable , he choose not to take suboxone and does not feel need naltrexone. (3) Major depression Status: Acute Comments: patient at present is not depress , no anti depressant given as he has had bad reaction to them , he feels depakote helps him best, and he has done better . Qualifiers: Major depression recurrence: recurrent Active/Remission status: currently active Major depression episode severity: moderate Qualified Code(s): F33.1 - Major depressive disorder, recurrent, moderate Medications - Discharge Medications Prescriptions: Baclofen [Lioresal] 10 mg PO TID #60 tablet cloNIDine HCl [CloNIDine HCl] 0.1 mg PO BID 14 Days #30 tablet Nicotine Patch [Nicoderm] 21 mg TD DAILY #14 patch.[id number] Valproic Acid Oral Soln [Depakene Oral Soln] 250 mg PO BID #60 udc Baclofen [Lioresal] 10 mg PO TID #60 tablet 04/23/18 [Rx] Nicotine Patch [Nicoderm] 21 mg TD DAILY #14 patch.td24 04/23/18 [Rx] Valproic Acid Oral Soln [Depakene Oral Soln] 250 mg PO BID #60 udc 04/23/18 [Rx] cloNIDine HCl [CloNIDine HCl] 0.1 mg PO BID 14 Days #30 tablet 04/23/18 [Rx] 3 Allergy/AdvReac Type Severity Reaction Status Date / Time Sulfa (Sulfonamide Allergy Hives Verified 02/04/18 11:47 Antibiotics) Results Procedures and tests throughout hospitalization: Completed Lab Orders Category Date Time Status Troponin I Stat Lab 04/22/18 16:14 Completed Provider Date of admission: 04/16/18 23:56 Primary care physician: PCP NONE Consults: 04/22/18 15:30 Consult to Hospitalist [CONS] Stat Consulting Provider: Jethro Giordano Reason for Consult: chest pain Time Notified: 15:31 Call Completed: Yes Psychiatry Exam - Constitutional Vitals: Temp Pulse Resp BP Pulse Ox 98.1 F 56 16 110/73 98 04/23/18 09:00 04/23/18 09:00 04/23/18 09:00 04/23/18 09:00 04/16/18 23:25 General appearance: age & developmentally appropriate, well-groomed, well- nourished - Musculoskeletal Gait: normal Station: relaxed Strength & Tone: normal for patient - Psychiatric Patient Orientation: Yes Person, Yes Time, Yes Place Level of alertness: Alert Behavior: cooperative, anxious Psychomotor activity: Normal Eye Contact: Maintains Eye Contact Mood Description: Euthymic/stable Affect description: congruent with mood Speech Volume: Normal Speech pattern: clear, coherent Language & Vocabulary: consistent with education Thought Process: Intact Thought Content: Yes Intact Perceptual Disturbances: No Auditory hallucinations, No Visual hallucinations Attention Span Ability: Capable of Focused Attention Memory Description: Grossly Intact Patient Reliability: Reliable Historian Fund of knowledge: Yes abstraction ability, Yes aware of current events Intelligence Estimate: Average Judgment: Good Insight: Partial Hospital Course Hospital course: Mr. Koenig is a 28 year old male was admitted for psychosis related to substance , depression and suicidal ideation , he also was experiencing opiate withdrawal. patient has extensive substance use history. During course of hospitalization patient was given medications to help his withdrawal and he declined suboxone , he has been on suboxone before states i feel like taking it is like continuining opiates, i wanted to stop as i do not have desire for it, denied cravig and declined Naltrexone which was offered to him. Seroquel was decreased from 300 mg and then dc as he was having side effects and as no more psychosis no other anti psychotic given as patient aLSO DID NOT WANTED ANY , HE WAS NOT Put on any other antidepressant as he had tried in past and had bad reaction to them. he did well on depakene liquid, baclofen ,and clonidine. he denied any side effects and feels this combination is 100 % good for him , i feel more rested and happy and motivated. He had chest pain yesterday and medica;l consult was called and r/o any cardiac abnormality , his EKG and troponin level were normal. he has hept C and aware of effects of depakote on liver. He has short and snf plans and has maternal uncle with whom he will stay and will go to out patient therapy and other appointments given , education about compliance given. depakote level not done as on low dose and he feels better on this dose. at present not suicidal/homicidal and no psychosis. will discharge today . Time spent discussing smoking cessation with patient: 3 to 10 minutes Does patient wish to continue nicotine replacement upon disc: Yes (prescription given) - Time Spent with Patient Total time spent providing and/or coordinating discharge services: Greater than 30 minutes Assessment and Plan - Patient/Caregiver Discharge Instructions Activity: resume usual activities as tolerated Diet: regular diet - Follow up Plan Follow up with: [facility] [Outside] - 05/14/18 11:00 am (The above appointment is with Jelly Hui for psychiatric assessment and medication management. Please arrive 30 minutes early for paperwork. Bring your photo ID and insurance card to your appointment.) [facility] [Outside] - 04/24/18 9:30 am (The above appointment is with Angie for substance abuse and mental health counseling. Please bring photo ID and insurance card.) Clarence Dick, SENIOR HUMAN RESOURCES REPRESENTATIVE [Advanced Practice Nurse] - 05/16/18 3:00 pm (The above appointment is with Clarence Dick for gastroenterology evaluation and treatment. Please bring your photo ID and insurance card.) Functional capacity at discharge: independent ambulation Overall status at discharge: Stable Disposition: Home, Self-Care Quality - Multiple Antipsychotics Patient discharged on 2 or more antipsychotic medications: No Procedures - Procedures Procedures: Medication Management, Crisis Stabilization, Supportive Therapy, Group Therapy, Psychoeducational Therapy
--- NOTE | 2018-04-24 15:02 | Electrocardiograph Report ---
[address] [address] Test Date: 2018-04-22 Pat Name: Fransico Koenig Department: 101 Room: 45 Gender: M Drawer In Stitch Bonding Machine: : 1990 Requested By: Jethro Giordano Order Number: [id number] Reading MD: Dylan Vera Measurements Intervals [place] Rate: 71 P: 55 DC: 137 QRS: 100 QRSD: 101 T: 51 QT: 379 QTc: 402 Interpretive Statements SINUS RHYTHM BORDERLINE RIGHT AXIS DEVIATION INCOMPLETE RIGHT BUNDLE BRANCH BLOCK Electronically Signed On 04-24-2018 15:00:57 EDT by Dylan Vera
== END 2018-04-23 15:50 | disposition home or self-care (01) | DRG 773 ==
LOC: EMEROO 18:44 → 1ANU 23:56 → SUATTDRO 23:56 → 1ANU 04-17 01:02
PROVIDERS: ADMIT Psychiatry & Neurology Forensic Psychiatry; ATTEND Psychiatry & Neurology Psychiatry

== ENCOUNTER 2019-09-14 16:23 | Inpatient (IN) ==
[2019-09-14 17:54] LABS: Amphetamine Screen,Urine Negative ng/mL (Cutoff=1000); Barbiturate Screen,Urine Negative ng/mL (Cutoff=200); Benzodiazepines Screen,Urine Negative ng/mL (Cutoff=200); Cannabinoid Screen,Urine Negative ng/mL (Cutoff = 50); Cocaine Screen,Urine Negative ng/mL (Cutoff= 300); Opiate Screen,Urine Negative ng/mL (Cutoff=300); Phencyclidine Screen,Urine Negative ng/mL (Cutoff=25)
[2019-09-14 18:04] LABS: Basophils # 0.1 K/mcL (0.0-0.2); Basophils % 0.9 %; Eosinophils # 0.1 K/mcL (0.0-0.6); Eosinophils % 1.4 %; Hematocrit 45.4 % (37.5-50.1); Hemoglobin 15.8 g/dL (12.9-16.9); Immature Granulocytes % 1.3 % (0-4); Lymphocytes # 2.8 K/mcL (0.6-4.6); Lymphocytes % 28.2 %; Mean Corpuscular HGB Conc 34.8 g/dL (31.6-35.5); Mean Corpuscular Hemoglobin 30.7 pg (28.0-33.3); Mean Corpuscular Volume 88.3 fL (83.0-100.0); Monocytes # 0.9 K/mcL (0.0-1.3); Neutrophils # 5.8 K/mcL (1.6-8.9); Platelet Count 231 K/mcL (140-400); Red Blood Count 5.14 M/mcL (4.19-5.50); Red Cell Distribution Width 13.2 % (11.5-14.5); Segmented Neutrophils % 59.2 %; White Blood Count 9.8 K/mcL (4.3-11.1)
[2019-09-14 18:22] LABS: Acetaminophen < 10 mcg/mL (10-20); BUN/Creatinine Ratio 10 (6-26); Blood Urea Nitrogen 7 mg/dL (6-20); Calcium 9.1 mg/dL (8.6-10.3); Carbon Dioxide 28 mEq/L (23-29); Chloride 102 mEq/L (98-107); Ethanol < 10 mg/dL (Less than 10); Glucose 85 mg/dL (70-105); Osmolality,Calculated 281 (280-300); Potassium 3.7 mEq/L (3.5-5.1); Salicylate < 2.5 mg/dL (15.0-30.0); Sodium 137 mEq/L (136-145); eGFR For African Americans > 60 (> 60); eGFR For Non-African Americans > 60 (> 60)
[2019-09-14] MEDS ORDERED: *HR* LORazepam 1 MG TABLET PO PRN (20:03)
[2019-09-14] MEDS ORDERED: Mag Hydrox/Al Hydrox/Simeth 30 ML UDC PO PRN (20:03)
[2019-09-14] MEDS ORDERED: Acetaminophen 325 MG TABLET PO PRN (20:03)
[2019-09-14] MEDS ORDERED: Haloperidol Lactate 5 MG/ML VIAL IM PRN (20:03)
[2019-09-14] MEDS ORDERED: *HR* LORazepam 2 MG/ML VIAL IM PRN (20:03)
[2019-09-14] MEDS: traZODone 50 MG TABLET PO PRN (21:59)
[2019-09-14] MEDS: hydrOXYzine pamoate 25 MG CAPSULE PO PRN (21:59)
[2019-09-14] MEDS: OLANZapine 5 MG TAB.RAPDIS PO SCH (21:59)
[2019-09-14] MEDS: Nicotine 2 MG GUM BC PRN (22:42)
[2019-09-15] MEDS ORDERED: Venlafaxine XR (24 HR) 75 MG CAP.ER.24H PO SCH (09:00)
[2019-09-15] MEDS: Nicotine 2 MG GUM BC PRN ×2 (17:20→21:17)
[2019-09-15] MEDS: Venlafaxine XR (24 HR) 75 MG CAP.ER.24H PO SCH (17:23)
[2019-09-15] MEDS: OLANZapine 5 MG TAB.RAPDIS PO SCH (21:16)
[2019-09-15] MEDS: hydrOXYzine pamoate 25 MG CAPSULE PO PRN (21:16)
[2019-09-15] MEDS: traZODone 50 MG TABLET PO PRN (21:16)
[2019-09-16] MEDS: Venlafaxine XR (24 HR) 75 MG CAP.ER.24H PO SCH (09:03)
[2019-09-16] MEDS: Nicotine 2 MG GUM BC PRN (09:04)
[2019-09-16 10:39] VITALS: BP 111/65
[2019-09-16] MEDS ORDERED: INVEGA SUSTENNA 234 MG IM SCH (12:30)
== END 2019-09-16 14:20 | disposition home or self-care (01) | DRG 885 ==
LOC: EMEROOARM 16:23 → 1ANU 19:48
PROVIDERS: ADMIT Psychiatry & Neurology Forensic Psychiatry; ATTEND Psychiatry & Neurology Forensic Psychiatry

== ENCOUNTER 2020-07-03 01:13 | Observation (INO) ==
[2020-07-03 02:12] LABS: BUN/Creatinine Ratio 10 (6-26); Blood Urea Nitrogen 7 mg/dL (6-20); Carbon Dioxide 24 mEq/L (23-29); Chloride 99 mEq/L (98-107); Glucose 110 mg/dL (70-105); Osmolality,Calculated 277 (280-300); Potassium 3.9 mEq/L (3.5-5.1); Sodium 134 mEq/L (136-145); eGFR For African Americans > 60 (> 60); eGFR For Non-African Americans > 60 (> 60)
[2020-07-03 02:13] LABS: Troponin I < 0.03 ng/mL (< 0.04)
[2020-07-03 02:21] LABS: White Blood Count 13.2 K/mcL (4.3-11.1)
[2020-07-03 02:22] LABS: Basophils # 0.1 K/mcL (0.0-0.2); Basophils % 0.5 %; Eosinophils # 0.2 K/mcL (0.0-0.6); Eosinophils % 1.7 %; Hematocrit 38.9 % (37.5-50.1); Hemoglobin 12.3 g/dL (12.9-16.9); Immature Granulocytes % 0.6 % (0-4); Lymphocytes % 22.7 %; Mean Corpuscular HGB Conc 31.6 g/dL (31.6-35.5); Mean Corpuscular Hemoglobin 28.4 pg (28.0-33.3); Mean Corpuscular Volume 89.8 fL (83.0-100.0); Monocytes # 1.1 K/mcL (0.0-1.3); Monocytes % 8.3 %; Neutrophils # 8.7 K/mcL (1.6-8.9); Platelet Count 387 K/mcL (140-400); Red Blood Count 4.33 M/mcL (4.19-5.50); Red Cell Distribution Width 13.1 % (11.5-14.5); Segmented Neutrophils % 66.2 %
[2020-07-03] MEDS ORDERED: Isovue-370 500 ML BOTTLE IVP ONE (02:27)
[2020-07-03 03:02] LABS: Amphetamine Screen,Urine Negative ng/mL (Cutoff=1000); Barbiturate Screen,Urine Negative ng/mL (Cutoff=200); Benzodiazepines Screen,Urine Negative ng/mL (Cutoff=200); Cannabinoid Screen,Urine Negative ng/mL (Cutoff = 50); Cocaine Screen,Urine Negative ng/mL (Cutoff= 300); Opiate Screen,Urine Positive ng/mL (Cutoff=300); Phencyclidine Screen,Urine Negative ng/mL (Cutoff=25)
[2020-07-03] MEDS ORDERED: Ondansetron ODT 4 MG TAB.RAPDIS SL PRN (04:08)
[2020-07-03] MEDS ORDERED: Ibuprofen 400 MG TABLET PO PRN (04:08)
[2020-07-03] MEDS ORDERED: Naloxone 0.4 MG/ML INJ IVP PRN (04:08)
[2020-07-03 04:49] LABS: Adenovirus Not Detected (Not Detect); Bordetella Pertussis Not Detected (Not Detect); Chlamydophila pneumoniae Not Detected (Not Detect); Coronavirus 229E Not Detected (Not Detect); Coronavirus HKU1 Not Detected (Not Detect); Coronavirus NL63 Not Detected (Not Detect); Coronavirus OC43 Not Detected (Not Detect); Human Metapneumovirus Not Detected (Not Detect); Human Rhinovirus/Enterovirus Not Detected (Not Detect); Influenza A Subtype 2009 H1 Not Detected (Not Detect); Influenza B Not Detected (Not Detect); Mycoplasma pneumoniae Not Detected (Not Detect); Parainfluenza Virus 1 Not Detected (Not Detect); Parainfluenza Virus 2 Not Detected (Not Detect); Parainfluenza Virus 3 Not Detected (Not Detect); Parainfluenza Virus 4 Not Detected (Not Detect); Respiratory Syncytial Virus Not Detected (Not Detect); SARS-CoV-2 Not Detected (Not Detect)
[2020-07-03] MEDS ORDERED: Acetaminophen 325 MG TABLET PO PRN (04:53)
[2020-07-03 05:03] LABS: Activated Partial Thrombo Time 29.3 Seconds (26.0-36.0); INR 1.3; Prothrombin Time 15.1 Seconds (9.4-12.1)
[2020-07-03] MEDS ORDERED: *HR* HYDROcodone/Acet 5/325 mg TABLET PO PRN (05:44)
[2020-07-03] MEDS ORDERED: *HR* OxyCODONE Immed Rel 5 MG TABLET PO PRN (05:44)
[2020-07-03] MEDS ORDERED: *HR* Enoxaparin 40 MG/0.4 ML SYRINGE SQ SCH (06:00)
[2020-07-03] MEDS ORDERED: Vancomycin 1,750 MG/517.5 ML IV.SOLN IVPB ONE (06:13)
[2020-07-03 07:14] VITALS: BP 112/65
[2020-07-03] MEDS ORDERED: 0.9 % Sodium Chloride 1,000 ML IVC SCH (07:30)
[2020-07-03] MEDS ORDERED: Vancomycin (wt based) 1,000 MG VIAL IVPB SCH (09:00)
[2020-07-03] MEDS ORDERED: Vancomycin 1,250 MG/262.5 ML IV.SOLN IVPB SCH (18:00)
== END 2020-07-03 10:31 | disposition left against medical advice (07) ==
LOC: EMEROOARM 01:13 → 3BNU 01:13
PROVIDERS: ADMIT Internal Medicine; ATTEND Internal Medicine